=== PATIENT | female | born 1995 | race African-American/Black ===

== ENCOUNTER 2016-08-30 11:33 | Emergency (ER) | payer MEDICAID ==
[~2016-08-30] VITALS: Ht 167.6 cm; Wt 63.5 kg
--- NOTE | 2016-08-30 11:39 | NUR ---
PRESENTS SELF TO ED DT VAGINAL PAIN AND DISCOMFORT SINCE MARCH 2016. PATIENT DENIES DSICHARGES, NO HEMATURIA NOR DYSURIA. VSS. GOWNED AND ASSISTED TO OB ROOM.
--- NOTE | 2016-08-30 12:01 | NUR ---
URINE SAMPLE SENT TO LAB
[2016-08-30 12:06] LABS: APPEARANCE,URINE Clear (CLEAR); BILIRUBIN,URINE Negative (NEGATIVE); BLOOD, URINE Trace-intact Ery/uL (NEGATIVE); COLOR,URINE Yellow (YELLOW); KETONES,URINE Negative (NEGATIVE); LEUKOCYTE ESTERASE ,URINE Trace (NEGATIVE); NITRITE, URINE Negative (NEGATIVE); PH,URINE 5.5 (5.0-8.0); PROTEIN,URINE Negative (NEGATIVE); UGLUCOSE Negative (NEGATIVE); UROBILINOGEN,URINE 0.2 EU/dL (0.2)
[2016-08-30 12:12] LABS: PREGNANCY TEST URINE QUAL NEGATIVE (NEGATIVE)
[2016-08-30 12:15] LABS: ADD URINE CULTURE NO; BACTERIA,URINE Few /HPF (None Seen); SQUAMOUS EPITHELIAL CELL,UR Few /HPF (None Seen)
--- NOTE | 2016-08-30 13:14 | NUR ---
DR CARIAS AT BS FOR PELVIC EXAM.
--- NOTE | 2016-08-30 13:27 | NUR ---
Patient discharged to home in stable condition. Written and verbal after care instructions given. Patient verbalizes understanding of instruction.
[2016-08-30 13:29] VITALS: BP 125/86
[2016-08-31 22:12] LABS: *NEISSERIA GONORRHOEAE NAA Negative (Negative); CHLAMYDIA TRACHOMATIS NAA Negative (Negative)
== END 2016-08-30 13:29 | disposition home or self-care (01) ==
LOC: ER 11:35
DX: N76.0 Acute vaginitis (principal)
CPT/HCPCS: 81001; 84703; 87086; 87210; 87491; 87591; 99284; A4606; Z7610; 81000-TC

== ENCOUNTER 2017-01-31 21:09 | Emergency (ER) | payer MEDICAID ==
[~2017-01-31] VITALS: Ht 167.6 cm; Wt 61.2 kg
[2017-01-31 21:14] VITALS: BP 131/67
--- NOTE | 2017-01-31 21:15 | NUR ---
PT C/O SWOLLEN LIPS SINCE 2PM;NO MEDS TAKEN; NO SOB, YESTERDAY APPLIED ABDOULAYE ON THROAT FOR COUGH. NAD NOTED, VSS, RESP EVEN AND UNLABORED. WAITING FOR MD GREGG.
[2017-01-31] MEDS ORDERED: diphenhydrAMINE HCL 50 MG/ML VIAL ONE (21:53)
[2017-01-31] MEDS ORDERED: predniSONE 20 MG TABLET ONE (21:53)
[2017-01-31] MEDS ORDERED: predniSONE 20 MG TABLET PO ONE (22:00)
[2017-01-31] MEDS ORDERED: diphenhydrAMINE HCL 50 MG/ML VIAL IM ONE (22:00)
== END 2017-01-31 22:02 | disposition home or self-care (01) ==
LOC: ER 21:16
DX: T78.40XA Allergy, unspecified, initial encounter (principal); Y92.89 Other specified places as the place of occurrence of the external cause
CPT/HCPCS: 96372; 99283; A4606; J1200; J7512; Z7610

== ENCOUNTER 2024-10-24 19:42 | Emergency (ER) | payer BC, MEDICAID ==
[~2024-10-24] VITALS: Ht 170.2 cm; Wt 88.9 kg
[2024-10-24] MEDS: IV NS 0.9% 1,000 ML BAG IV ONE (21:12)
[2024-10-24 21:25] LABS: BASOPHILS % (AUTO) 0.4 % (0.0-2.0); EOSINOPHILS # (AUTO) 0.1 K/uL (0.0-0.7); EOSINOPHILS % (AUTO) 0.8 % (0.0-6.0); HEMATOCRIT 40 % (33-45); LYMPHOCYTES # (AUTO) 3.3 K/uL (0.8-4.8); LYMPHOCYTES % (AUTO) 28.4 % (20.0-44.0); MEAN CORPUSCULAR HEMOGLOBIN 26 PG (26.0-33.0); MEAN CORPUSCULAR HGB CONC 33 g/dl (31.0-36.0); MEAN CORPUSCULAR VOLUME 80 fL (82-100); MONOCYTES # (AUTO) 0.6 K/uL (0.1-1.30); NEUTROPHILS # (AUTO) 7.6 K/uL (1.8-8.9); NEUTROPHILS % (AUTO) 65.4 % (43.0-81.0); PLATELET COUNT (AUTO) 329 K/uL (150-450); RED BLOOD CELL COUNT(AUTO) 4.98 MIL/uL (4.0-5.2); RED CELL DISTRIBUTION WIDTH 15.6 % (11.5-15.0); WHITE BLOOD COUNT (AUTO) 11.6 K/uL (4.3-11.0)
[2024-10-24 21:39] LABS: CALCIUM, SERUM 9.1 mg/dL (8.5-10.1); CARBON DIOXIDE 33 mmol/L (21-32); CHLORIDE 103 mmol/L (98-107); CREATININE 0.8 mg/dL (0.6-1.3); GLUCOSE 92 mg/dL (74-106); POTASSIUM 3.7 mmol/L (3.5-5.1); SODIUM SERUM 139 mmol/L (136-145); UREA NITROGEN, BLOOD 8 mg/dL (7-18)
[2024-10-24 21:44] LABS: NT-PRO BNP 17 pg/mL (0-125)
[2024-10-24 21:51] LABS: PREGNANCY TEST URINE QUAL NEGATIVE (NEGATIVE)
[2024-10-24] MEDS ORDERED: IOHEXOL-350 100 ML VIAL IV ONE (21:55)
[2024-10-24] MEDS ORDERED: IV NS 0.9% 250 ML IV ONE (21:56)
[2024-10-24 22:56] VITALS: BP 136/87; TEMP 98.7; O2SAT 98
== END 2024-10-24 22:57 | disposition home or self-care (01) ==
LOC: ER 19:54
DX: R09.1 Pleurisy (principal); R07.1 Chest pain on breathing; R07.89 Other chest pain; R10.2 Pelvic and perineal pain; Z60.2 Problems related to living alone
CPT/HCPCS: 99285; 96360; 71275; 71045; 93005 ×2; 85025; 80048; 84703; 36415; 84484; 83880; 84702; J7030; J7050; A4223; Q9967